=== PATIENT | female | born 2000 | race Asian ===

== ENCOUNTER 2024-02-21 21:40 | Emergency (ER) | payer MEDICAID ==
[~2024-02-21] VITALS: Ht 170.2 cm; Wt 52.2 kg
[2024-02-21 22:12] VITALS: BP_SYST 107; PULSE 67; RESP 18; TEMP 97.8; O2SAT 100
[2024-02-21 22:40] LABS: BILIRUBIN,URINE NEGATIVE (NEGATIVE); BLOOD, URINE 3+ (NEGATIVE); CLARITY/URINE CLEAR (CLEAR); COLOR,URINE YELLOW (YELLOW); GLUCOSE,URINE TRACE (NEGATIVE); KETONES,URINE NEGATIVE (NEGATIVE); LEUKOCYTE ESTERASE ,URINE 2+ (NEGATIVE); NITRITE, URINE POSITIVE (NEGATIVE); PROTEIN URINE NEGATIVE (NEGATIVE)
[2024-02-21 23:00] LABS: BACTERIA,URINE FEW /HPF (None Seen)
[2024-02-21] MEDS: NITROFURANTOIN MONOHYD/M-CRYST 100 MG CAPSULE (MacroBID) PO ONE (23:27)
[2024-02-21] MEDS ORDERED: NITR-85 PO (23:43)
== END 2024-02-22 00:05 | disposition home or self-care (01) ==
LOC: SED 21:40
DX: N39.0 Urinary tract infection, site not specified (principal); Z87.440 Personal history of urinary (tract) infections; Z79.899 Other long term (current) drug therapy
CPT/HCPCS: 81000; 81001; 81015; 87086; 99283